=== PATIENT | female | born 1990 | race African-American/Black ===

== ENCOUNTER 2019-06-23 11:09 | Emergency (ER) | payer OTHER ==
[~2019-06-23] VITALS: Ht 157.5 cm; Wt 57.6 kg
[2019-06-23] MEDS ORDERED: JUNEL1 EAC1 PO (11:14)
[2019-06-23] MEDS ORDERED: MOBIC7.5 MG PO (13:03)
[2019-06-23] MEDS ORDERED: TAMIFLU75 MG PO (13:03)
[2019-06-23] MEDS ORDERED: TESSALON PERLE100 MG PO (13:04)
[2019-06-23 13:20] VITALS: BP 000/000
== END 2019-06-23 13:22 | disposition home or self-care (01) ==
LOC: ER 11:09
DX: J11.1 Influenza due to unidentified influenza virus with other respiratory manifestations (principal)